=== PATIENT | male | born 1980 | race Caucasian/White ===

== ENCOUNTER 2025-07-14 16:07 | Outpatient (CLI) | payer SELFPAY ==
--- NOTE | ~2025-07-14 | XR_ITS ---
XR wrist RT min 3V 07/14/2025 17:01 Indication: Avulsion fracture Procedure: 4 views right wrist Comparison: No prior studies for comparison. Findings: No fracture, subluxation or dislocation. No significant soft tissue abnormality. No foreign bodies. Impression: 1: No significant bone or joint abnormality. No avulsion fracture identified. Reviewed, dictated and finalized at location O. Impression: 1: No significant bone or joint abnormality. No avulsion fracture identified.
== END 2025-07-14 16:08 | disposition home or self-care (01) ==
PROVIDERS: PCP Chiropractor; Visit Provider Chiropractor
DX: S62.101A Fracture of unspecified carpal bone, right wrist, initial encounter for closed fracture (principal); X58.XXXA Exposure to other specified factors, initial encounter
CPT/HCPCS: 73110